=== PATIENT | female | born 1970 | race Caucasian/White ===

== ENCOUNTER 2017-03-14 17:52 | Emergency (ER) | payer MEDICAID, OTHER ==
[~2017-03-14] VITALS: Ht 175.3 cm; Wt 57.9 kg
[~2017-03-14 17:52] MED LIST: CYCL-36 PO; IBUP-232 PO; LISI-360 PO
[2017-03-14 18:00] VITALS: BP 144/87; PULSE 85; RESP 18; TEMP 98.5; O2SAT 98
[2017-03-14] MEDS ORDERED: KETOROLAC TROMETHAMINE 30 MG/ML (IVP) VIAL IV PUSH ONE (18:30)
[2017-03-14] MEDS ORDERED: SODIUM CHLOR 0.9% 1000 ML INJ 1,000 ML IV ONE (18:30)
[2017-03-14] MEDS ORDERED: SODIUM CHLORIDE 0.9% FLUSH 10 ML FLUSH IVF PRN (18:30)
[2017-03-14 18:33] LABS: BASOPHIL # 0.1 TH/MM3 (0-0.2); BASOPHIL % 0.7 % (0.0-2.0); EOSINOPHIL # 0.4 TH/MM3 (0-0.4); EOSINOPHIL % 3.6 % (0.0-4.0); HEMATOCRIT 41.6 % (35.0-46.0); HEMO FLAGS DIFF FINAL; LYMPH % 21.6 % (9.0-44.0); LYMPHOCYTE # 2.2 TH/MM3 (1.0-4.8); MEAN CELL VOLUME 101.1 FL (80.0-100.0); MEAN CORPUSCULAR HGB CONC 33.7 % (32.0-36.0); MONO % 6.2 % (0.0-8.0); NEUT % 67.9 % (16.0-70.0); PLATELET COUNT 287 TH/MM3 (150-450); RED BLOOD COUNT 4.12 MIL/MM3 (4.00-5.30); RED CELL DISTRIBUTION WIDTH 13.7 % (11.6-17.2); WHITE BLOOD COUNT 10.3 TH/MM3 (4.0-11.0)
--- NOTE | 2017-03-14 18:35 | PD ---
HPI Chief Complaint: Chest Pain Time Seen by Provider: 18:13 Travel History International Travel<30 days: No Contact w/Intl Traveler<30days: No Traveled to known affect area: No History of Present Illness HPI Patient is a 46-year-old female with history of hypertension who presents to emergency room with complaints of chest pain. She reports that she has been having ongoing chest pain for the past 4-5 days. Patient reports that chest pain is located throughout her left breast, reports that it is nonradiating in nature, reports that pain feels like a sharp stabbing sensation to her chest, patient is exacerbated by taking a deep breath. Reports no history of coronary artery disease, MS, cardiac stents, hyperlipidemia, no family history of early coronary disease or MS. Patient reports that she is a smoker, reports that she extremely anxious as she has never felt this in the past. Patient denies any trauma to her chest wall, no recent travels/trips. She is not on control pills. NO hx of PE/dvt PFSH Past Medical History Cardiovascular Problems: Yes (HTN) Diminished Hearing: No Hypertension: Yes Kidney Stones: Yes Influenza Vaccination: Yes ?: Not Social History Alcohol Use: Yes (OCCASS) Tobacco Use: Yes (1/2 PPD) Substance Use: No Allergies-Medications (Allergen,Severity, Reaction): Coded Allergies: Penicillin (Verified Allergy, Unknown, A CHILD, DOES NOT REMEMBER, ) CHILD Reported Meds & Prescriptions Reported Meds & Active Scripts Active Motrin (Ibuprofen) 600 Mg Tab 600 Mg PO QID GIVE WITH FOOD Flexeril (Cyclobenzaprine HCl) 10 Mg Tab 10 Mg PO HS PRN Reported Lisinopril 10 mg (Lisinopril) 10 Mg Tab 1 Tab PO DAILY Review of Systems General / Constitutional: No: Fever Eyes: No: Visual changes HENT: No: Headaches Cardiovascular: Positive: Chest Pain or Discomfort, Palpitations Respiratory: Positive: Shortness of Breath Gastrointestinal: No: Abdominal Pain Genitourinary: No: Dysuria Musculoskeletal: No: Pain Skin: No Rash Neurologic: No: Weakness Psychiatric: No: Depression Endocrine: No: Polydipsia Hematologic/Lymphatic: No: Easy Bruising Physical Exam Narrative GENERAL: Mild distress SKIN: Focused skin assessment warm/dry. HEAD: Atraumatic. Normocephalic. EYES: Pupils equal and round. No scleral icterus. No injection or drainage. ENT: No nasal bleeding or discharge. Mucous membranes pink and moist. NECK: Trachea midline. No JVD. CARDIOVASCULAR: Regular rate and rhythm. No murmur appreciated. RESPIRATORY: No accessory muscle use. Clear to auscultation. Breath sounds equal bilaterally. GASTROINTESTINAL: Abdomen soft, non-tender, nondistended. Hepatic and splenic margins not palpable. MUSCULOSKELETAL: No obvious deformities. No clubbing. No cyanosis. No edema. NEUROLOGICAL: Awake and alert. No obvious cranial nerve deficits. Motor grossly within normal limits. Normal speech. PSYCHIATRIC: Patient extremely anxious on exam Data Data Last Documented VS Vital Signs Date Time Temp Pulse Resp B/P Pulse Ox O2 Delivery O2 Flow Rate FiO2 03/14/17 19:24 18 03/14/17 19:14 74 139/89 100 Room Air 03/14/17 18:00 98.5 Orders Ckmb (Isoenzyme) Profile (03/14/17 18:20) Complete Blood Count With Diff (03/14/17 18:20) Comprehensive Metabolic Panel (03/14/17 18:20) D-Dimer (03/14/17 18:20) Prothrombin Time / Inr (Pt) (03/14/17 18:20) Act Partial Throm Time (Ptt) (03/14/17 18:20) Troponin I (03/14/17 18:20) Lipase (03/14/17 18:20) Chest, Single Ap (03/14/17 18:20) Ecg Monitoring (03/14/17 18:20) Iv Access Insert/Monitor (03/14/17 18:20) Oximetry (03/14/17 18:20) Sodium Chloride 0.9% Flush (Ns Flush) (03/14/17 18:30) Ed Urine Pregnancytest Poc (03/14/17 18:20) Sodium Chlor 0.9% 1000 Ml Inj (Ns 1000 M (03/14/17 18:30) Ketorolac Inj (Toradol Inj) (03/14/17 18:30) Aspirin Chew (Aspirin Chew) (03/14/17 19:15) Nitroglycerin Sl (Nitrostat Sl) (03/14/17 19:15) Labs Laboratory Tests Test 03/14/17 18:05 White Blood Count 10.3 TH/MM3 Red Blood Count 4.12 MIL/MM3 Hemoglobin 14.0 GM/DL Hematocrit 41.6 % Mean Corpuscular Volume 101.1 FL Mean Corpuscular Hemoglobin 34.0 PG Mean Corpuscular Hemoglobin 33.7 % Concent Red Cell Distribution Width 13.7 % Platelet Count 287 TH/MM3 Mean Platelet Volume 8.3 FL Neutrophils (%) (Auto) 67.9 % Lymphocytes (%) (Auto) 21.6 % Monocytes (%) (Auto) 6.2 % Eosinophils (%) (Auto) 3.6 % Basophils (%) (Auto) 0.7 % Neutrophils # (Auto) 7.0 TH/MM3 Lymphocytes # (Auto) 2.2 TH/MM3 Monocytes # (Auto) 0.6 TH/MM3 Eosinophils # (Auto) 0.4 TH/MM3 Basophils # (Auto) 0.1 TH/MM3 CBC Comment DIFF FINAL Differential Comment Prothrombin Time 10.3 SEC Prothromb Time International 0.9 RATIO Ratio Activated Partial 23.8 SEC Thromboplast Time D-Dimer Quantitative (PE/DVT) 0.25 MG/L FEU Sodium Level 138 MEQ/L Potassium Level 3.7 MEQ/L Chloride Level 104 MEQ/L Carbon Dioxide Level 29.7 MEQ/L Anion Gap 4 MEQ/L Blood Urea Nitrogen 14 MG/DL Creatinine 0.89 MG/DL Estimat Glomerular Filtration 68 ML/MIN Rate Random Glucose 97 MG/DL Calcium Level 8.8 MG/DL Total Bilirubin 0.4 MG/DL Aspartate Amino Transf 16 U/L (AST/SGOT) Alanine Aminotransferase 22 U/L (ALT/SGPT) Alkaline Phosphatase 57 U/L Total Creatine Kinase 61 U/L Troponin I LESS THAN 0.02 NG/ML Total Protein 7.4 GM/DL Albumin 3.9 GM/DL Lipase 213 U/L [facility] Medical Decision Making Medical Screen Exam Complete: Yes Emergency Medical Condition: Yes Interpretation(s) EKG at 1800: NSR at 82bpm, qt/qtc: 351/389, no acute st or t wave changes Vital Signs Date Time Temp Pulse Resp B/P Pulse Ox O2 Delivery O2 Flow Rate FiO2 03/14/17 18:10 85 18 98 Room Air 03/14/17 18:00 98.5 85 18 144/87 98 Differential Diagnosis Differential includes arrhythmia, ACS, PE, pneumothorax, electrolyte abnormality Narrative Course Patient is a 46-year-old female who presents to emergency room for evaluation of chest pain. Patient reports that her chest pain began 4-5 days ago and has been persistent. Reports that pain feels sharp and stabbing sensation to her left chest, reports associated shortness of breath with her symptoms. EKG is unremarkable. Patient was placed on a shirrer upon arrival to the emergency room. Given that her symptoms been ongoing for the past 4-5 days , and obtain one set of cardiac enzymes, d-dimer ordered to rule out PE as patient has low risk for PE. Her symptoms do sound pleuritic in nature, will give a dose of Toradol. Plan to monitor patient on a shirrer. Vital Signs Date Time Temp Pulse Resp B/P Pulse Ox O2 Delivery O2 Flow Rate FiO2 03/14/17 18:39 98 Room Air 03/14/17 18:10 85 18 98 Room Air 03/14/17 18:00 98.5 85 18 144/87 98 Laboratory Tests Test 03/14/17 18:05 White Blood Count 10.3 TH/MM3 (4.0-11.0) Red Blood Count 4.12 MIL/MM3 (4.00-5.30) Hemoglobin 14.0 GM/DL (11.6-15.3) Hematocrit 41.6 % (35.0-46.0) Mean Corpuscular Volume 101.1 FL (80.0-100.0) Mean Corpuscular Hemoglobin 34.0 PG (27.0-34.0) Mean Corpuscular Hemoglobin 33.7 % Concent (32.0-36.0) Red Cell Distribution Width 13.7 % (11.6-17.2) Platelet Count 287 TH/MM3 (150-450) Mean Platelet Volume 8.3 FL (7.0-11.0) Neutrophils (%) (Auto) 67.9 % (16.0-70.0) Lymphocytes (%) (Auto) 21.6 % (9.0-44.0) Monocytes (%) (Auto) 6.2 % (0.0-8.0) Eosinophils (%) (Auto) 3.6 % (0.0-4.0) Basophils (%) (Auto) 0.7 % (0.0-2.0) Neutrophils # (Auto) 7.0 TH/MM3 (1.8-7.7) Lymphocytes # (Auto) 2.2 TH/MM3 (1.0-4.8) Monocytes # (Auto) 0.6 TH/MM3 (0-0.9) Eosinophils # (Auto) 0.4 TH/MM3 (0-0.4) Basophils # (Auto) 0.1 TH/MM3 (0-0.2) CBC Comment DIFF FINAL Differential Comment Prothrombin Time 10.3 SEC (9.8-11.6) Prothromb Time International 0.9 RATIO Ratio Activated Partial 23.8 SEC Thromboplast Time (24.3-30.1) D-Dimer Quantitative (PE/DVT) 0.25 MG/L FEU (0.00-0.50) Sodium Level 138 MEQ/L (136-145) Potassium Level 3.7 MEQ/L (3.5-5.1) Chloride Level 104 MEQ/L (98-107) Carbon Dioxide Level 29.7 MEQ/L (21.0-32.0) Anion Gap 4 MEQ/L (5-15) Blood Urea Nitrogen 14 MG/DL (7-18) Creatinine 0.89 MG/DL (0.50-1.00) Estimat Glomerular Filtration 68 ML/MIN (>89) Rate Random Glucose 97 MG/DL (74-106) Calcium Level 8.8 MG/DL (8.5-10.1) Total Bilirubin 0.4 MG/DL (0.2-1.0) Aspartate Amino Transf 16 U/L (15-37) (AST/SGOT) Alanine Aminotransferase 22 U/L (10-53) (ALT/SGPT) Alkaline Phosphatase 57 U/L (45-117) Total Creatine Kinase 61 U/L (26-192) Troponin I LESS THAN 0.02 NG/ML (0.02-0.05) Total Protein 7.4 GM/DL (6.4-8.2) Albumin 3.9 GM/DL (3.4-5.0) Lipase 213 U/L (73-393) Last Impressions Chest X-Ray 03/14/17 1820 Signed Impressions: Service Date/Time: Tuesday, March 14, 2017 18:32 - CONCLUSION: The lungs are clear. Jose Colvin MD Patient reevaluated, patient with no relief of pain after given Toradol. She reports that chest pain now feels like a crushing chest pain sensation to her chest, sublingual nitroglycerin as well as aspirin ordered. Patient reports that she is extremely anxious as one of her co-workers "dropped of a heart attack 2 days ago." Will continue to obs Patient relief complete relief of chest pain after 1 sublingual nitroglycerin. Discussed need for observation to the hospital for chest pain work up. Patient refuses admission and request to leave AMA. Reports that she has to go home and take care of her kids, she will return to ER if symptoms return. In the meantime , understands need to follow up with pcp and java analyst as soon as possible. AMA: The risks of leaving against medical advice without further evaluation treatment were discussed with the patient. These risks include cardiac dysfunction, cardiac dysrhythmia, possible heart attack, possible stroke or . The patient indicated understanding of these risks and appeared to have the capacity to make this decision. Diagnosis Primary Impression: Chest pain Qualified Code: R07.9 - Chest pain, unspecified type Referrals: Joe Patterson DO Patient Instructions: General Instructions Additional Instructions: You may return to ER at any time for re-evaluation of your symptoms Return to ER if symptoms return/worsen or progress Return to ER as needed Please follow up with java analyst as well as primary care doctor as soon as possible Disposition: 07 AGAINST MEDICAL ADVICE Condition: Serious Holli Hunt DO Mar 14, 2017 18:35
[2017-03-14 18:39] VITALS: O2SAT 98
[2017-03-14 18:41] LABS: CHLORIDE 104 MEQ/L (98-107); POTASSIUM 3.7 MEQ/L (3.5-5.1); SODIUM (NA) 138 MEQ/L (136-145)
[2017-03-14 18:45] LABS: ANION GAP 4 MEQ/L (5-15); BICARBONATE 29.7 MEQ/L (21.0-32.0); BLOOD UREA NITROGEN 14 MG/DL (7-18)
[2017-03-14 18:48] LABS: ALT (GPT) 22 U/L (10-53); APTT (PATIENT) 23.8 SEC (24.3-30.1); AST (GOT) 16 U/L (15-37); GLOMERULAR FILTRATION RATE 68 ML/MIN (>89); INTERNATIONAL NORMALIZED RATIO 0.9 RATIO; PROTHROMBIN TIME - PATIENT 10.3 SEC (9.8-11.6)
[2017-03-14 18:49] LABS: TOTAL BILIRUBIN ADULT 0.4 MG/DL (0.2-1.0)
--- NOTE | 2017-03-14 18:50 | RADRPT ---
EXAM DATE/TIME: 03/14/2017 18:32 [facility] COMPARISON: No previous studies available for comparison. INDICATIONS : Chest pain. MEDICAL HISTORY : Hypertension. Renal calculi. SURGICAL HISTORY : Left wrist bone grafts, plates/rods. ENCOUNTER: Initial ACUITY: 1 day PAIN SCORE: 8/10 LOCATION: Bilateral chest FINDINGS: A single view of the chest demonstrates the lungs to be symmetrically aerated without evidence of mas s, infiltrate or effusion. The cardiomediastinal contours are unremarkable. Osseous structures are intact. CONCLUSION: The lungs are clear. Jose Colvin MD on March 14, 2017 at 18:48 Board Certified Radiologist. This report was verified electronically.
[2017-03-14 18:51] LABS: ALKALINE PHOSPHATASE 57 U/L (45-117)
[2017-03-14 18:52] LABS: CREATINE KINASE 61 U/L (26-192)
[2017-03-14 19:14] VITALS: BP 139/89; PULSE 74; RESP 18; O2SAT 100
[2017-03-14] MEDS ORDERED: ASPIRIN 81 MG CHEW TAB PO ONE (19:15)
[2017-03-14] MEDS: NITROGLYCERIN 0.4 MG SL 25 TABS/BTL SL SCH ×3 (19:16→19:23)
[2017-03-14 19:24] VITALS: RESP 18
--- NOTE | 2017-03-15 13:11 | EKG ---
Date Performed: 03/14/2017 Time Performed: 18:00:02 PTAGE: 46 years EKG: Sinus rhythm WITH SINUS ARRHYTHMIA NORMAL ECG NO PREVIOUS TRACING DOCTOR: Munira Quigley Interpretating Date/Time 03/15/2017 13:09:33
== END 2017-03-14 19:58 | disposition left against medical advice (07) ==
LOC: PHED 17:52
DX: R07.9 Chest pain, unspecified (principal); R06.02 Shortness of breath; I10 Essential (primary) hypertension; F17.200 Nicotine dependence, unspecified, uncomplicated; Z87.442 Personal history of urinary calculi; Z86.79 Personal history of other diseases of the circulatory system; Z53.29 Procedure and treatment not carried out because of patient's decision for other reasons
CPT/HCPCS: 71010; 80053; 82550; 83690; 84484; 85025; 85379; 85610; 85730; 93005; 96361; 96374; 99284; J1885; J7030

== ENCOUNTER 2017-05-19 08:44 | Emergency (ER) | payer OTHER ==
[~2017-05-19] VITALS: Ht 177.2 cm; Wt 56.0 kg
[2017-05-19 09:00] VITALS: BP 134/88; PULSE 65; RESP 16; TEMP 98.7; O2SAT 98
[2017-05-19 09:00] LABS: AUTOMATED NEUTROPHIL # 4.3 TH/MM3 (1.8-7.7); BASOPHIL # 0.1 TH/MM3 (0-0.2); BASOPHIL % 0.9 % (0.0-2.0); EOSINOPHIL # 0.4 TH/MM3 (0-0.4); EOSINOPHIL % 5.3 % (0.0-4.0); HEMATOCRIT 43.2 % (35.0-46.0); HEMO FLAGS DIFF FINAL; LYMPH % 25.5 % (9.0-44.0); LYMPHOCYTE # 1.8 TH/MM3 (1.0-4.8); MEAN CELL VOLUME 99.3 FL (80.0-100.0); MEAN CORPUSCULAR HEMOGLOBIN 33.2 PG (27.0-34.0); MEAN CORPUSCULAR HGB CONC 33.4 % (32.0-36.0); MONO % 7.4 % (0.0-8.0); NEUT % 60.9 % (16.0-70.0); PLATELET COUNT 345 TH/MM3 (150-450); RED BLOOD COUNT 4.35 MIL/MM3 (4.00-5.30); RED CELL DISTRIBUTION WIDTH 12.8 % (11.6-17.2); WHITE BLOOD COUNT 7.1 TH/MM3 (4.0-11.0)
[2017-05-19] MEDS ORDERED: ONDANSETRON HCL 4 MG/2 ML VIAL IV PUSH ONE (09:00)
[2017-05-19] MEDS ORDERED: MORPHINE SULFATE 4 MG/ML INJ IV PUSH ONE (09:00)
[2017-05-19] MEDS ORDERED: SODIUM CHLORID 0.9% 500 ML INJ 500 ML IV ONE (09:00)
[2017-05-19] MEDS ORDERED: SODIUM CHLORIDE 0.9% FLUSH 10 ML FLUSH IVF PRN (09:00)
--- NOTE | 2017-05-19 09:05 | PD ---
HPI Chief Complaint: Chest Pain Time Seen by Provider: 08:48 Travel History International Travel<30 days: No Contact w/Intl Traveler<30days: No Traveled to known affect area: No History of Present Illness HPI PATIENT PRESENT WITH MULTIPLE COMPLAINTS. FIRST STATED A CHEST PRESSURE, SUBSTERNAL , RAD TO LEFT SHOULDER/ARM AREA, 6 WHICH OCCURRED AROUND 0430 TODAY...PATIENT DRANK SOME JUICE AND WENT BACK TO SLEEP THEN AT AROUND 0600 WOKE UP AGAIN, THIS TIME WITH HEADACHE, NO VISUAL CHANGES, 03/20, GENERALIZED, GOT DIAPHORETIC WHICH CONCERNED HER AND MADE HER COME HERE INSTEAD OF TO WORK. PATIENT DENIES H/O DRINKING (EXCEPT SOCIALLY), PATIENT DOES SMOKE. DENIES BEING ON BCP( CONTROL PILLS). ALL: PCN PCP DR POLO GERONIMO PMHX: HTN ON METOPROLOL PFSH Past Medical History Cardiovascular Problems: Yes (HTN) Diminished Hearing: No Hypertension: Yes Kidney Stones: Yes Social History Alcohol Use: Yes (OCCASS) Tobacco Use: Yes (1/2 PPD) Substance Use: No Allergies-Medications (Allergen,Severity, Reaction): Coded Allergies: penicillin G (Unverified Allergy, Unknown, A CHILD, DOES NOT REMEMBER, 05/19/17) CHILD Reported Meds & Prescriptions Reported Meds & Active Scripts Active Reported Metoprolol Succinate ER 24 HR (Metoprolol Succinate) 50 Mg Tab 50 Mg PO DAILY Review of Systems Except as stated in HPI: all other systems reviewed are Neg HENT: Positive: Headaches Cardiovascular: Positive: Chest Pain or Discomfort Gastrointestinal: Positive: Nausea Physical Exam Narrative GENERAL: SKIN: Warm and dry. HEAD: Atraumatic. Normocephalic. EYES: Pupils equal and round. No scleral icterus. No injection or drainage. ENT: No nasal bleeding or discharge. Mucous membranes pink and moist. NECK: Trachea midline. No JVD. CARDIOVASCULAR: Regular rate and rhythm. RESPIRATORY: No accessory muscle use. Clear to auscultation. Breath sounds equal bilaterally. GASTROINTESTINAL: Abdomen soft, non-tender, nondistended. MUSCULOSKELETAL: Extremities without clubbing, cyanosis, or edema. No obvious deformities. NEUROLOGICAL: Awake and alert. No obvious cranial nerve deficits. Motor grossly within normal limits. Five out of 5 muscle strength in the arms and legs. Normal speech. PSYCHIATRIC: Appropriate mood and affect; insight and judgment normal. Data Data Last Documented VS Vital Signs Date Time Temp Pulse Resp B/P (MAP) Pulse Ox O2 Delivery O2 Flow Rate FiO2 05/19/17 10:00 57 16 138/85 (102) 97 Room Air 05/19/17 09:00 98.7 Orders Orders Electrocardiogram (05/19/17 08:49) B-Type Natriuretic Peptide (05/19/17 08:49) Ckmb (Isoenzyme) Profile (05/19/17 08:49) Complete Blood Count With Diff (05/19/17 08:49) Comprehensive Metabolic Panel (05/19/17 08:49) D-Dimer (05/19/17 08:49) Prothrombin Time / Inr (Pt) (05/19/17 08:49) Act Partial Throm Time (Ptt) (05/19/17 08:49) Troponin I (05/19/17 08:49) Lipase (05/19/17 08:49) Ecg Monitoring (05/19/17 08:49) Bilateral Bp Monitoring (05/19/17 08:49) Iv Access Insert/Monitor (05/19/17 08:49) Oximetry (05/19/17 08:49) Sodium Chloride 0.9% Flush (Ns Flush) (05/19/17 09:00) Urinalysis - C+S If Indicated (05/19/17 08:49) Ed Urine Pregnancytest Poc (05/19/17 08:49) Drug Screen, Random Urine (05/19/17 08:49) Alcohol (Ethanol) (05/19/17 08:49) Salicylates (Aspirin) (05/19/17 08:49) Tylenol (Acetaminophen) (05/19/17 08:49) Morphine Inj (Morphine Inj) (05/19/17 09:00) Sodium Chlorid 0.9% 500 Ml Inj (Ns 500 M (05/19/17 09:00) Ondansetron Inj (Zofran Inj) (05/19/17 09:00) CKMB (05/19/17 08:51) CKMB% (05/19/17 08:51) Chest, Single Ap (05/19/17 ) Labs Laboratory Tests Test 05/19/17 08:51 05/19/17 10:20 White Blood Count 7.1 TH/MM3 Red Blood Count 4.35 MIL/MM3 Hemoglobin 14.4 GM/DL Hematocrit 43.2 % Mean Corpuscular Volume 99.3 FL Mean Corpuscular Hemoglobin 33.2 PG Mean Corpuscular Hemoglobin Concent 33.4 % Red Cell Distribution Width 12.8 % Platelet Count 345 TH/MM3 Mean Platelet Volume 8.0 FL Neutrophils (%) (Auto) 60.9 % Lymphocytes (%) (Auto) 25.5 % Monocytes (%) (Auto) 7.4 % Eosinophils (%) (Auto) 5.3 % Basophils (%) (Auto) 0.9 % Neutrophils # (Auto) 4.3 TH/MM3 Lymphocytes # (Auto) 1.8 TH/MM3 Monocytes # (Auto) 0.5 TH/MM3 Eosinophils # (Auto) 0.4 TH/MM3 Basophils # (Auto) 0.1 TH/MM3 CBC Comment DIFF FINAL Differential Comment Prothrombin Time 10.5 SEC Prothromb Time International Ratio 1.0 RATIO Activated Partial Thromboplast Time 25.7 SEC D-Dimer Quantitative (PE/DVT) LESS THAN 0.19 MG/L FEU Blood Urea Nitrogen 14 MG/DL Creatinine 0.81 MG/DL Random Glucose 126 MG/DL Total Protein 7.9 GM/DL Albumin 4.3 GM/DL Calcium Level 8.5 MG/DL Alkaline Phosphatase 66 U/L Aspartate Amino Transf (AST/SGOT) 12 U/L Alanine Aminotransferase (ALT/SGPT) 22 U/L Total Bilirubin 0.2 MG/DL Sodium Level 139 MEQ/L Potassium Level 3.8 MEQ/L Chloride Level 106 MEQ/L Carbon Dioxide Level 25.8 MEQ/L Anion Gap 7 MEQ/L Estimat Glomerular Filtration Rate 76 ML/MIN Total Creatine Kinase 128 U/L Creatine Kinase MB 2.0 NG/ML Troponin I LESS THAN 0.02 NG/ML B-Type Natriuretic Peptide 20 PG/ML Lipase 357 U/L Salicylates Level 5.8 MG/DL Acetaminophen Level LESS THAN 2.0 MCG/ML Ethyl Alcohol Level LESS THAN 3 MG/DL Urine Color YELLOW Urine Turbidity CLEAR Urine pH 6.5 Urine Specific [place] 1.030 Urine Protein NEG mg/dL Urine Glucose (UA) NEG mg/dL Urine Ketones NEG mg/dL Urine Occult Blood LARGE Urine Nitrite NEG Urine Bilirubin NEG Urine Leukocyte Esterase NEG Urine RBC 0-3 /hpf Urine WBC 0-2 /hpf Urine Squamous Epithelial Cells 0-5 /hpf Microscopic Urinalysis Comment CULT NOT INDICATED Urine Barbiturates Screen NEG Urine Amphetamines Screen NEG Urine Benzodiazepines Screen NEG MDM Medical Decision Making Medical Screen Exam Complete: Yes Emergency Medical Condition: Yes Medical Record Reviewed: Yes Interpretation(s) NSR, 60, NL INTERVALS, NO STEMI PATTERN Differential Diagnosis HI V NONSTEMI V PE V PNA V ANEMIA Narrative Course UPON CHART REVIEW PATIENT PRESENTED HERE FOR CP IN MARCH OF 2017 WHEN SHE SIGNED OUT AMA, TODAY PRESENTS AGAIN WITH CP AND HAS NOT HAD OUTPATIENT CARDIAC EVALUATION...I BELIEVE IT PRUDENT TO AT LEAST ADMIT FOR OBS TO CHEST PAIN CENTER FOR FURTHER EVALUATION/CARE.....HOWEVER PATIENT DECLINED OBSERVATION STATUS, STATING THAT SHE JUST STARTED HER NEW JOB AND WORRIES ABOUT LOSING IT...ALSO STATES THAT SHE HAD A REFERRAL TO A [facility] BY DR GERONIMO BUT BC OF HURRICANE ASHLEY IT HAD TO BE RESCHEDULED. PATIENT IN FRONT OF HER FRIEND STATES THAT SHE WILL GO TO DR GERONIMO'S OFFICE TODAY AND GET THAT REFERRAL FOR CARDIAC RISK STRATIFICATION I HAVE ADVISED....PATIENT STATED THAT SHE WILL ASSUME RESPONSIBILITY FOR HER ACTIONS AND UNDERSTANDS THAT WHAT IS BEST IS TO STAY FOR OBSERVATION BUT PER PATIENT'S REASONS SHE CANNOT STAY TODAY AND ACCEPTS RISK OF /HI/PERMANENT NEUROLOGIC DISABILITY. Diagnosis Primary Impression: LOW RISK CHEST PAIN Patient Instructions: Chest Pain (ED), General Instructions Additional Instructions: SEE DR POLO GERONIMO TODAY AND SCHEDULE YOUR OUTPATIENT CARDIOLOGY WORKUP MARISA, UNDERSTAND THAT THIS IS NOT MY RECOMMENDATION BUT YOU ARE FREE TO MAKE DECISIONS AND UNDERSTAND THE CONSEQUENCES THAT WERE DISCUSSED WITH YOU. Disposition: 01 DISCHARGE HOME Condition: Stable Fer Maxwell MD May 19, 2017 09:05
[2017-05-19 09:11] LABS: CHLORIDE 106 MEQ/L (98-107); POTASSIUM 3.8 MEQ/L (3.5-5.1); SODIUM (NA) 139 MEQ/L (136-145)
[2017-05-19 09:15] VITALS: RESP 16; O2SAT 99
[2017-05-19 09:16] LABS: ANION GAP 7 MEQ/L (5-15); BICARBONATE 25.8 MEQ/L (21.0-32.0); BLOOD UREA NITROGEN 14 MG/DL (7-18)
[2017-05-19 09:19] LABS: ALT (GPT) 22 U/L (10-53); AST (GOT) 12 U/L (15-37); GLOMERULAR FILTRATION RATE 76 ML/MIN (>89)
[2017-05-19 09:20] LABS: ALCOHOL LESS THAN 3 MG/DL (0-5); TOTAL BILIRUBIN ADULT 0.2 MG/DL (0.2-1.0)
[2017-05-19] MEDS ORDERED: METO50TA11 PO (09:20)
[2017-05-19 09:21] LABS: CREATINE KINASE 128 U/L (26-192)
[2017-05-19 09:22] LABS: ALKALINE PHOSPHATASE 66 U/L (45-117)
[2017-05-19 09:27] LABS: APTT (PATIENT) 25.7 SEC (24.3-30.1); PROTHROMBIN TIME - PATIENT 10.5 SEC (9.8-11.6)
--- NOTE | 2017-05-19 09:44 | RADRPT ---
EXAM DATE/TIME: 05/19/2017 09:09 [facility] COMPARISON: CHEST SINGLE AP, March 14, 2017, 18:32. INDICATIONS : Chest pain MEDICAL HISTORY : Hypertension. Renal calculi. SURGICAL HISTORY : Left wrist bone grafts, plates/rods ENCOUNTER: Initial ACUITY: 1 day PAIN SCORE: 8/10 LOCATION: Bilateral chest FINDINGS: A single view of the chest demonstrates the lungs to be symmetrically aerated without evidence of mas s, infiltrate or effusion. The cardiomediastinal contours are unremarkable. Osseous structures are intact. CONCLUSION: 1. No acute cardiopulmonary disease. Lenin Pederson MD on May 19, 2017 at 9:43 Board Certified Radiologist. This report was verified electronically.
[2017-05-19 10:00] VITALS: BP 138/85; PULSE 57; RESP 16; O2SAT 97
[2017-05-19 10:30] LABS: BLOOD, URINE LARGE (NEG); GLUCOSE,URINE NEG (NEG); KETONE, URINE NEG (NEG); NITRITE,URINE NEG (NEG); PH, URINE 6.5 (5.0-8.5)
[2017-05-19 10:37] LABS: URINE COLOR YELLOW (YELLW/STRAW)
[2017-05-19 10:39] LABS: RBC, URINE 0-3 /hpf (0-3); SQUAMOUS EPITHELIAL CELL URINE 0-5 /hpf (0-5); WBC, URINE 0-2 /hpf (0-5)
[2017-05-19 10:40] LABS: COMMENT (UR) CULT NOT INDICATED; CULTURE IF INDICATED CULT NOT INDICATED
[2017-05-19 10:44] LABS: ACETAMINOPHEN LESS THAN 2.0 MCG/ML (10.0-30.0)
[2017-05-19 11:00] VITALS: BP 149/80; PULSE 56; RESP 16; O2SAT 97
[2017-05-19 12:00] VITALS: BP 142/79; PULSE 60; RESP 16; O2SAT 98
--- NOTE | 2017-05-19 12:41 | EKG ---
Date Performed: 05/19/2017 Time Performed: 08:51:19 PTAGE: 46 years EKG: SINUS BRADYCARDIA WITH SINUS ARRHYTHMIA BORDERLINE ECG Compared to prior tracing no signifi cant change PREVIOUS TRACING : 03/14/2017 18.00 DOCTOR: Mekhi Omer Interpretating Date/Time 05/19/2017 12:36:41
== END 2017-05-19 12:19 | disposition home or self-care (01) ==
LOC: PHED 08:44
DX: R07.89 Other chest pain (principal); I10 Essential (primary) hypertension; F17.200 Nicotine dependence, unspecified, uncomplicated; Z87.442 Personal history of urinary calculi; R94.31 Abnormal electrocardiogram [ECG] [EKG]
CPT/HCPCS: 71010; 80053; 80307; 81001; 82550; 82552; 83690; 83880; 84484; 84703; 85025; 85379; 85610; 85730; 93005; 96361; 96374; 96375; 99285; J2270; J2405; J7040

== ENCOUNTER 2017-05-28 23:16 | Observation (INO) | payer OTHER ==
[~2017-05-28] VITALS: Ht 175.3 cm; Wt 56.0 kg
[~2017-05-28 23:16] MED LIST changes: -CYCL-36 PO; -IBUP-232 PO; -LISI-360 PO; +METO50TA11 PO
[2017-05-28 23:18] VITALS: BP 137/83; PULSE 88; RESP 16; TEMP 97.9; O2SAT 98
[2017-05-28 23:45] VITALS: BP_SYST 120; BP_SYST 132; BP_DIAS 78; PULSE 82; RESP 18; O2SAT 99
[2017-05-29] VITALS (12 sets, daily range): BP systolic 105–149; BP diastolic 65–91; PULSE 55–88; RESP 18–20; TEMP 97–98.1; O2SAT 96–100
--- NOTE | 2017-05-29 00:06 | PD ---
HPI Chief Complaint: Chest Pain Time Seen by Provider: 23:49 Travel History International Travel<30 days: No Contact w/Intl Traveler<30days: No Traveled to known affect area: No History of Present Illness HPI The patient is a 46-year-old female that complains of chest pain and back pain for several weeks. The pain is mostly sharp and comes on primarily with movements. She states it's inside and not on the surface. She does smoke one half pack a day. She denies any history of heart disease. She was here on the ninth of this month for this and they offered her a stress test but she declined , she comes in today to get the stress test. She states that she has had a tubal ligation and cannot be . [facility] Past Medical History Cardiovascular Problems: Yes (HTN) Diminished Hearing: No Hypertension: Yes Kidney Stones: Yes Immunizations Current: Yes Past Surgical History Other Surgery: Yes (LUMPECTOMY RIGHT BREAST-BENIGN) Social History Alcohol Use: Yes (OCCASS) Tobacco Use: Yes (1/2 PPD) Substance Use: No Allergies-Medications (Allergen,Severity, Reaction): Coded Allergies: penicillin G (Unverified Allergy, Unknown, A CHILD, DOES NOT REMEMBER, 05/29/17) CHILD Reported Meds & Prescriptions Reported Meds & Active Scripts Active Reported Losartan (Losartan Potassium) 50 Mg Tab 50 Mg PO DAILY Lasix (Furosemide) 20 Mg Tab 20 Mg PO DAILY Metoprolol Succinate ER 24 HR (Metoprolol Succinate) 50 Mg Tab 50 Mg PO DAILY Review of Systems Except as stated in HPI: all other systems reviewed are Neg Physical Exam Narrative GENERAL: Patient is alert, extremely anxious in no apparent distress except for her chest discomfort and her pain around the trapezius, primarily on the left. Her vital signs are normal. SKIN: Focused skin assessment warm/dry. HEAD: Atraumatic. Normocephalic. EYES: Pupils equal and round. No scleral icterus. No injection or drainage. ENT: No nasal bleeding or discharge. Mucous membranes pink and moist. NECK: Trachea midline. No JVD. CARDIOVASCULAR: Regular rate and rhythm. No murmur appreciated. RESPIRATORY: No accessory muscle use. Clear to auscultation. Breath sounds equal bilaterally. GASTROINTESTINAL: Abdomen soft, non-tender, nondistended. Hepatic and splenic margins not palpable. MUSCULOSKELETAL: No obvious deformities. No clubbing. No cyanosis. No edema. NEUROLOGICAL: Awake and alert. No obvious cranial nerve deficits. Motor grossly within normal limits. Normal speech. PSYCHIATRIC: Appropriate mood and affect; insight and judgment normal. Data Data Last Documented VS Vital Signs Date Time Temp Pulse Resp B/P (MAP) Pulse Ox O2 Delivery O2 Flow Rate FiO2 05/29/17 00:48 83 18 105/72 (83) 96 Room Air 05/28/17 23:18 97.9 Orders Orders Electrocardiogram (05/29/17 00:10) Complete Blood Count With Diff (05/29/17 00:10) Comprehensive Metabolic Panel (05/29/17 00:10) Troponin I (05/29/17 00:10) Ecg Monitoring (05/29/17 00:10) Bilateral Bp Monitoring (05/29/17 00:10) Iv Access Insert/Monitor (05/29/17 00:10) Oximetry (05/29/17 00:10) Oxygen Administration (05/29/17 00:10) Aspirin (Aspirin) (05/29/17 00:15) Sodium Chloride 0.9% Flush (Ns Flush) (05/29/17 00:15) Nitroglycerin Sl (Nitrostat Sl) (05/29/17 00:15) Chest, Pa & Lat (05/29/17 00:10) Labs Laboratory Tests Test 05/29/17 00:10 White Blood Count 7.6 TH/MM3 Red Blood Count 3.78 MIL/MM3 Hemoglobin 12.8 GM/DL Hematocrit 37.9 % Mean Corpuscular Volume 100.2 FL Mean Corpuscular Hemoglobin 33.9 PG Mean Corpuscular Hemoglobin Concent 33.8 % Red Cell Distribution Width 13.0 % Platelet Count 273 TH/MM3 Mean Platelet Volume 8.3 FL Neutrophils (%) (Auto) 48.1 % Lymphocytes (%) (Auto) 37.0 % Monocytes (%) (Auto) 9.4 % Eosinophils (%) (Auto) 4.8 % Basophils (%) (Auto) 0.7 % Neutrophils # (Auto) 3.6 TH/MM3 Lymphocytes # (Auto) 2.8 TH/MM3 Monocytes # (Auto) 0.7 TH/MM3 Eosinophils # (Auto) 0.4 TH/MM3 Basophils # (Auto) 0.1 TH/MM3 CBC Comment DIFF FINAL Differential Comment Blood Urea Nitrogen 16 MG/DL Creatinine 0.71 MG/DL Random Glucose 96 MG/DL Total Protein 6.9 GM/DL Albumin 3.8 GM/DL Calcium Level 8.7 MG/DL Alkaline Phosphatase 54 U/L Aspartate Amino Transf (AST/SGOT) 12 U/L Alanine Aminotransferase (ALT/SGPT) 19 U/L Total Bilirubin 0.3 MG/DL Sodium Level 139 MEQ/L Potassium Level 3.9 MEQ/L Chloride Level 105 MEQ/L Carbon Dioxide Level 25.8 MEQ/L Anion Gap 8 MEQ/L Estimat Glomerular Filtration Rate 89 ML/MIN Troponin I LESS THAN 0.02 NG/ML MDM Medical Decision Making Medical Screen Exam Complete: Yes Emergency Medical Condition: Yes Medical Record Reviewed: Yes Interpretation(s) The CBC is normal except for an MCV of 100.2. The complete metabolic profile is normal. The troponin I is normal. Differential Diagnosis Chest wall pain, pleuritic pain, musculoskeletal pain, acute coronary syndrome- unlikely, electrolyte disorder Narrative Course The patient has chest pain unknown etiology. Plan: The patient will be admitted to the chest pain center. Physician Communication Physician Communication Discussed patient with Dr. Low Diagnosis Primary Impression: Chest pain of unknown etiology Admitting Information Admitting Physician Requests: Observation Nick Rubi MD May 29, 2017 00:06
[2017-05-29] MEDS ORDERED: ASPIRIN 325 MG TAB PO ONE (00:15)
[2017-05-29] MEDS ORDERED: SODIUM CHLORIDE 0.9% FLUSH 10 ML FLUSH IVF PRN (00:15)
[2017-05-29] MEDS ORDERED: FURO1TAB62 PO (00:21)
[2017-05-29] MEDS ORDERED: LOSA50TA PO (00:22)
[2017-05-29] MEDS: NITROGLYCERIN 0.4 MG SL 25 TABS/BTL SL SCH ×3 (00:43→00:55)
--- NOTE | 2017-05-29 00:48 | RADRPT ---
EXAM DATE/TIME: 05/29/2017 00:16 [facility] COMPARISON: No previous studies available for comparison. INDICATIONS : Chest pain. MEDICAL HISTORY : None. SURGICAL HISTORY : None. ENCOUNTER: Initial ACUITY: 1 day PAIN SCORE: 7/10 LOCATION: Bilateral chest FINDINGS: PA and lateral views of the chest demonstrate the lungs to be symmetrically aerated without evidence of mass, infiltrate or effusion. The cardiomediastinal contours are unremarkable. Osseous structure s are intact. CONCLUSION: 1. No acute cardiopulmonary disease. Mekhi Uriostegui MD on May 29, 2017 at 0:47 Board Certified Radiologist. This report was verified electronically.
[2017-05-29 00:51] LABS: CHLORIDE 105 MEQ/L (98-107); POTASSIUM 3.9 MEQ/L (3.5-5.1); SODIUM (NA) 139 MEQ/L (136-145)
[2017-05-29 00:56] LABS: ANION GAP 8 MEQ/L (5-15); AUTOMATED NEUTROPHIL # 3.6 TH/MM3 (1.8-7.7); BASOPHIL # 0.1 TH/MM3 (0-0.2); BASOPHIL % 0.7 % (0.0-2.0); BICARBONATE 25.8 MEQ/L (21.0-32.0); BLOOD UREA NITROGEN 16 MG/DL (7-18); EOSINOPHIL # 0.4 TH/MM3 (0-0.4); EOSINOPHIL % 4.8 % (0.0-4.0); HEMATOCRIT 37.9 % (35.0-46.0); HEMO FLAGS DIFF FINAL; LYMPHOCYTE # 2.8 TH/MM3 (1.0-4.8); MEAN CELL VOLUME 100.2 FL (80.0-100.0); MEAN CORPUSCULAR HEMOGLOBIN 33.9 PG (27.0-34.0); MEAN CORPUSCULAR HGB CONC 33.8 % (32.0-36.0); MONO % 9.4 % (0.0-8.0); NEUT % 48.1 % (16.0-70.0); PLATELET COUNT 273 TH/MM3 (150-450); RED BLOOD COUNT 3.78 MIL/MM3 (4.00-5.30); WHITE BLOOD COUNT 7.6 TH/MM3 (4.0-11.0)
[2017-05-29 00:59] LABS: ALT (GPT) 19 U/L (10-53); AST (GOT) 12 U/L (15-37); GLOMERULAR FILTRATION RATE 89 ML/MIN (>89)
[2017-05-29 01:01] LABS: TOTAL BILIRUBIN ADULT 0.3 MG/DL (0.2-1.0)
[2017-05-29 01:02] LABS: ALKALINE PHOSPHATASE 54 U/L (45-117)
[2017-05-29] MEDS ORDERED: REGADENOSON INJ 0.4 MG/5 ML SYR IV ONE (01:53)
[2017-05-29] MEDS ORDERED: SODIUM CHLORIDE 0.9% FLUSH 10 ML FLUSH IV FLUSH PRN (02:15)
[2017-05-29] MEDS ORDERED: KETOROLAC TROMETHAMINE 60 MG/2 ML (IM) VIAL IVP ONE (03:15)
[2017-05-29 03:38] LABS: CREATINE KINASE 105 U/L (26-192)
[2017-05-29 06:49] LABS: CREATINE KINASE 96 U/L (26-192)
[2017-05-29] MEDS ORDERED: NITROGLYCERIN 0.4 MG SL 25 TABS/BTL SL PRN (08:00)
--- NOTE | 2017-05-29 08:42 | HHI.HP ---
[facility] Hira Norton M.D. Admission Diagnosis chest pain of unknown etiology Diagnoses: (1) Chest pain Diagnosis: Principal Chief Complaint: chest pain Travel History International Travel<30 Days: No Contact w/Intl Traveler <30 Da: No Traveled to Known Affected Are: No History of Present Illness Written by Arleth Sauceda PA-C acting as scribe for Dr. Flores on 05/29/17 at 0842. 46-year-old female history of hypertension is admitted to chest pain center. She drove herself to the ED. Patient states that she woke up yesterday and did not feel right. She says her head started hurting and she became diaphoretic and nauseous and vomited stomach acid. She states she took some ibuprofen which provided mild relief and then went back to bed. She states her chest and back started hurting and she couldn't catch her breath. She states she's had chest pain for 2 weeks off and on but got worse yesterday. She admits to "squeezing" currently in the chest. Patient states she moved a 4 bedroom house 4 days ago. She denies pleuritic sensation. She admits to shortness of breath only with pain but denies any chest pain or dyspnea on exertion. She states that 3 PM her headache returned. She also states her hands felt funny yesterday, tingling. She also had a racing heart and felt dizzy a couple of times during the diaphoretic episodes. Patient has a mild cough on exam but states this just started and she has not had a ongoing cough. Patient was seen in the ED on 05/19/17 for similar symptoms of chest pain and headache. She was unable to stay at that time due to childcare issues and did not undergo a stress test. Denies facial droop, slurred speech, or issues with ambulation. Review of Systems Except as stated in HPI: all other systems reviewed are Neg Past Family Social History Past Medical History Hypertension Nephrolithiasis Past Surgical History Lumpectomy right breast, benign. Repair left arm fracture, plate placed. Ligament repair left knee. Reported Medications Reported Meds & Active Scripts Active Reported Losartan (Losartan Potassium) 50 Mg Tab 50 Mg PO DAILY Lasix (Furosemide) 20 Mg Tab 20 Mg PO DAILY Metoprolol Succinate ER 24 HR (Metoprolol Succinate) 50 Mg Tab 50 Mg PO DAILY Allergies: Coded Allergies: penicillin G (Unverified Allergy, Unknown, A CHILD, DOES NOT REMEMBER, 05/29/17) CHILD Social History Patient smokes half pack per day of cigarettes. Patient drinks wine 2-3 times per week. Denies illicit drug use. Patient recently moved and has gone into [employer] in the past week. Has 2 children, 9 and 11 years old Physical Exam Vital Signs Vital Signs Date Time Temp Pulse Resp B/P (MAP) Pulse Ox O2 Delivery O2 Flow Rate FiO2 05/29/17 08:41 97.0 63 18 124/91 (102) 05/29/17 07:40 05/29/17 06:15 97.8 56 18 134/83 (100) 99 Room Air 05/29/17 04:58 96 21 05/29/17 04:00 Room Air 05/29/17 03:00 98.1 55 18 123/80 (94) 99 Room Air 05/29/17 02:15 62 18 119/70 (86) 97 Room Air 05/29/17 01:45 70 18 117/65 (82) 98 Room Air 05/29/17 01:15 72 18 110/68 (82) 97 Room Air 05/29/17 00:48 83 18 105/72 (83) 96 Room Air 05/29/17 00:42 88 18 123/80 (94) 100 Room Air 05/29/17 00:15 98 Room Air 05/29/17 00:15 78 18 119/73 (88) 98 Room Air 05/29/17 00:15 98 Room Air 05/29/17 00:00 98 Room Air 05/28/17 23:45 82 18 132/78 (96) 99 Room Air 120/78 (92) 05/28/17 23:18 97.9 88 16 137/83 (101) 98 Physical Exam GENERAL: This is a well-nourished, well-developed patient, in no apparent distress. SKIN: No rashes, ecchymoses or lesions. Warm and dry. HEAD: Atraumatic. Normocephalic. EYES: Pupils equal round and reactive. No scleral icterus. No injection or drainage. ENT: Uvula midline. Airway patent. NECK: Trachea midline. CHEST: Significant reproducible tenderness over the left anterior chest wall CARDIOVASCULAR: Regular rate and rhythm without murmurs, gallops, or rubs. RESPIRATORY: Clear to auscultation. Breath sounds equal bilaterally. No wheezes , rales, or rhonchi. GASTROINTESTINAL: Abdomen soft, non-tender, nondistended. No guarding. MUSCULOSKELETAL: No tenderness to palpation over the back. No lower extremity edema bilaterally. NEUROLOGICAL: Awake and alert. Motor grossly within normal limits. Five out of 5 muscle strength in bilateral lower extremities. Normal speech. PSYCHIATRIC: Anxious mood and affect. Becomes slightly tearful when stating she wants to go home as she is away from her kids right now. Laboratory Laboratory Tests Test 05/29/17 00:10 05/29/17 03:05 05/29/17 06:10 White Blood Count 7.6 Red Blood Count 3.78 Hemoglobin 12.8 Hematocrit 37.9 Mean Corpuscular Volume 100.2 Mean Corpuscular Hemoglobin 33.9 Mean Corpuscular Hemoglobin Concent 33.8 Red Cell Distribution Width 13.0 Platelet Count 273 Mean Platelet Volume 8.3 Neutrophils (%) (Auto) 48.1 Lymphocytes (%) (Auto) 37.0 Monocytes (%) (Auto) 9.4 Eosinophils (%) (Auto) 4.8 Basophils (%) (Auto) 0.7 Neutrophils # (Auto) 3.6 Lymphocytes # (Auto) 2.8 Monocytes # (Auto) 0.7 Eosinophils # (Auto) 0.4 Basophils # (Auto) 0.1 CBC Comment DIFF FINAL Differential Comment Blood Urea Nitrogen 16 Creatinine 0.71 Random Glucose 96 Total Protein 6.9 Albumin 3.8 Calcium Level 8.7 Alkaline Phosphatase 54 Aspartate Amino Transf (AST/SGOT) 12 Alanine Aminotransferase (ALT/SGPT) 19 Total Bilirubin 0.3 Sodium Level 139 Potassium Level 3.9 Chloride Level 105 Carbon Dioxide Level 25.8 Anion Gap 8 Estimat Glomerular Filtration Rate 89 Troponin I LESS THAN 0.02 LESS THAN 0.02 LESS THAN 0.02 Total Creatine Kinase 105 96 Creatine Kinase MB 2.0 Result Diagram: 05/29/17 0010 05/29/17 0010 Imaging Last Impressions Chest X-Ray 05/29/17 0010 Signed Impressions: Service Date/Time: May 00:16 - CONCLUSION: 1. No acute cardiopulmonary disease. MD Zoë Cruz VTE Risk Assessment Zoë VTE Risk Assessment: No/Low Risk (score <= 1) Zoë Risk Assessment Model Point Value = 1 Point Value = 2 Point Value = 3 Point Value = 5 Age 41-60 Minor surgery BMI > 25 kg/m2 Swollen legs Varicose veins or History of unexplained or recurrent spontaneous Oral contraceptives or hormone replacement Sepsis (< 1 month) Serious lung disease, including pneumonia (< 1 month) Abnormal pulmonary function Acute myocardial infarction Congestive heart failure (< 1 month) History of inflammatory bowel disease Medical patient at bed rest Age 61-74 Arthroscopic surgery Major open surgery (> 45 min) Laparoscopic surgery (> 45 min) Malignancy Confined to bed (> 72 hours) Immobilizing plaster cast Central venous access Age >= 75 History of VTE Family history of VTE Factor V Leiden Prothrombin [id number] Lupus anticoagulant Anticardiolipin antibodies Elevated serum homocysteine Heparin-induced thrombocytopenia Other congenital or acquired thrombophilia Stroke (< 1 month) Elective arthroplasty Hip, pelvis, or leg fracture Acute spinal cord injury (< 1 month) Prophylaxis Regimen Total Risk Factor Score Risk Level Prophylaxis Regimen 0-1 Low Early ambulation 2 Moderate Order ONE of the following: *Sequential Compression Device (SCD) *Heparin 5000 units SQ BID 3-4 Higher Order ONE of the following medications: *Heparin 5000 units SQ TID *Enoxaparin/Lovenox 40 mg SQ daily (WT < 150 kg, CrCl > 30 mL/min) *Enoxaparin/Lovenox 30 mg SQ daily (WT < 150 kg, CrCl > 10-29 mL/min) *Enoxaparin/Lovenox 30 mg SQ BID (WT < 150 kg, CrCl > 30 mL/min) AND/OR *Sequential Compression Device (SCD) 5 or more Highest Order ONE of the following medications: *Heparin 5000 units SQ TID (Preferred with Epidurals) *Enoxaparin/Lovenox 40 mg SQ daily (WT < 150 kg, CrCl > 30 mL/min) *Enoxaparin/Lovenox 30 mg SQ daily (WT < 150 kg, CrCl > 10-29 mL/min) *Enoxaparin/Lovenox 30 mg SQ BID (WT < 150 kg, CrCl > 30 mL/min) AND *Sequential Compression Device (SCD) Assessment and Plan Assessment and Plan 46 year old female with: Chest pain: Patient presented on 05/19/17 for chest pain as well as yesterday. She has never had a stress test before. She does have significant reproducible tenderness over the left chest but she is not sure if this is the same pain she has been feeling. EKGs x 3 were personally interpreted by Dr. Flores showing septal T wave inversion which is new since EKG in March of this year. Patient has bradycardia on EKGs #2 and #3 attributed to metoprolol use. Chest x-ray personally interpreted by Dr. Flores showing no acute abnormality. Troponin 3 less than 0.02. CBC and CMP unremarkable. Likely musculoskeletal in origin with anxiety component, but does have risk factors of tobacco use and HTN. -Telemetry -Lidocaine patch ordered; nitro as needed -Nuclear stress test, keep NPO -Lipid profile Hypertension: BP stable. -Hold Metoprolol. Continue Losartan and Lasix. Tobacco use: Patient informed her symptoms will be worse with cigarette smoking. She desires to quit. DVT prophylaxis: Early ambulation This note was transcribed by polly Reinoso. IRanulfo, personally performed the history, physical exam, and medical decision making; and confirmed the accuracy of information in the transcribed note. Authenticated by Ranulfo Flores on 6:45 PM on 05/29/2017. Nuclear stress test was negative, patient was counseled that the bulk of her pain was overwhelmingly musculoskeletal with partial acid reflux component. Was counseled on taking ice and heat therapy and stopping smoking since this would exacerbate any pre- existing pain or inflammation. Discussed Condition With patient Arleth Sauceda May 29, 2017 08:42 Ranulfo Flores MD May 29, 2017 18:46
[2017-05-29] MEDS ORDERED: SODIUM CHLORIDE 0.9% FLUSH 10 ML FLUSH IV FLUSH SCH (09:00)
[2017-05-29] MEDS ORDERED: LIDOCAINE HCL 5% PATCH T-DERMAL ONE (09:00)
--- NOTE | 2017-05-29 11:33 | RADRPT ---
EXAM DATE/TIME: 05/29/2017 10:12 [facility] COMPARISON: No previous studies available for comparison. INDICATIONS : Chest and back pain. Angina. DOSE: 25.9 mCi Tc99m Myoview at stress. 8.5 mCi Tc99m Myoview at rest. 0.4 mg Lexiscan STRESS SYMPTOMS: Dizziness and nausea. EJECTION FRACTION: 50% MEDICAL HISTORY : Hypertension. Smoker. SURGICAL HISTORY : Tubal ligation. ENCOUNTER: Initial ACUITY: 3 weeks PAIN SCALE: 7/10 LOCATION: chest TECHNIQUE: The patient underwent pharmacologic stress with infusion of prescribed dose. Continuous ECG tracing was monitored during stress. Gated SPECT imaging was performed after stress and conventional SPECT i maging was performed at rest. The examination was performed on a SPECT/CT scanner, both attenuation and non-corrected datasets were reviewed. FINDINGS: DISTRIBUTION: The maximum perfused segment at stress is in the anterior lateral wall. PERFUSION STUDY: The pattern of perfusion at stress is within normal limits. GATED STUDY: There is intact wall motion and thickening without hypokinetic or dyskinetic segments. CONCLUSION: Unremarkable myocardial perfusion examination. RISK CATEGORY: Low Balwinder Lugo MD on May 29, 2017 at 11:30 Board Certified Radiologist. This report was verified electronically.
[2017-05-29] MEDS ORDERED: OMEP40CA2 PO (12:28)
[2017-05-29] MEDS ORDERED: NORC5TAB PO (12:28)
--- NOTE | 2017-05-29 12:59 | HHI.DCPOC ---
Discharge Care Plan Diagnosis: (1) Chest pain Your Health Problems Are: Chest Pain Goals to Promote Your Health * To prevent worsening of your condition and complications * To maintain your health at the optimal level Directions to Meet Your Goals Take your medications as prescribed Follow your dietary instruction Follow activity as directed Keep your appointments as scheduled Take your immunizations and boosters as scheduled If your symptoms worsen call your PCP, if no PCP go to Urgent Care Center or Emergency Room Smoking is Dangerous to Your Health. Avoid second hand smoke Call the 24-hour hour crisis hotline for domestic abuse at Arleth Sauceda May 29, 2017 12:59
--- NOTE | 2017-05-29 13:15 | TR ---
Date Performed: 05/29/2017 Time Performed: 10:37:54 DOCTOR: Marc Macias DRUG LIST: CLINICAL HISTORY: REASON FOR TEST: Chest pain REASON FOR ENDING: OBSERVATION: CONCLUSION: Lexiscan stress test was performed under standard four minute protocol. Radionuclide was injected one minute prior to ending the test. No electrocardiographic abormalities were present to suggest ischemia. Nuclear imaging and interpretation are pending. COMMENTS:
--- NOTE | 2017-05-29 13:30 | EKG ---
Date Performed: 05/29/2017 Time Performed: 06:12:23 PTAGE: 46 years EKG: SINUS BRADYCARDIA WITH SINUS ARRHYTHMIA BORDERLINE ECG NO SIG CHANGES PREVIOUS TRACING : 05/29/2017 03.00 DOCTOR: Marc Macias Interpretating Date/Time 05/29/2017 13:29:34
--- NOTE | 2017-05-29 13:31 | EKG ---
Date Performed: 05/29/2017 Time Performed: 03:00:20 PTAGE: 46 years EKG: SINUS BRADYCARDIA WITH SINUS ARRHYTHMIA BORDERLINE ECG NO SIG CHANGE PREVIOUS TRACING : 05/28/2017 23.25 DOCTOR: Marc Macias Interpretating Date/Time 05/29/2017 13:30:40
--- NOTE | 2017-05-29 13:34 | EKG ---
Date Performed: 05/28/2017 Time Performed: 23:25:18 PTAGE: 46 years EKG: Sinus rhythm WITH SINUS ARRHYTHMIA MODERATE VOLTAGE CRITERIA FOR LVH, CONSIDER NORMAL VARIANT SLIGHT T WAVE MARIA ELENA ENING COMPARED TO PRIOR BORDERLINE ECG INTERPRETATION BASED ON A DEFAULT AGE OF 40 YEARS PREVIOUS TRACING : 05/19/2017 08.51 DOCTOR: Marc Macias Interpretating Date/Time 05/29/2017 13:33:20
[2017-05-30] MEDS ORDERED: FUROSEMIDE 20 MG TAB PO SCH (09:00)
[2017-05-30] MEDS ORDERED: LOSARTAN 50 MG TAB PO SCH (09:00)
== END 2017-05-29 13:30 | disposition home or self-care (01) ==
LOC: PHED 23:16 → PHEDA 05-29 01:52 → PHEDH 05-29 05:52 → PH3A 05-29 07:42
PROVIDERS: ADMIT Hospitalist; ATTEND Hospitalist
DX: R07.9 Chest pain, unspecified (principal); I10 Essential (primary) hypertension; R00.1 Bradycardia, unspecified; R51 Headache; R61 Generalized hyperhidrosis; R11.2 Nausea with vomiting, unspecified; R05 Cough; R06.02 Shortness of breath; I49.8 Other specified cardiac arrhythmias; M54.9 Dorsalgia, unspecified; R42 Dizziness and giddiness; F41.9 Anxiety disorder, unspecified; F17.210 Nicotine dependence, cigarettes, uncomplicated; Z79.899 Other long term (current) drug therapy
CPT/HCPCS: 71020; 78452; 80053; 80061; 82550; 82552; 84484; 84703; 85025; 93005; 93017; 96374; 96376; 99285; A9502; G0378; J1885; J2785